=== PATIENT | female | born 1950 | race Caucasian/White ===

== ENCOUNTER 2016-07-19 12:51 | Emergency (ER) | payer MEDICARE, OTHER ==
[~2016-07-19 12:51] MED LIST: ACET-2605 PO; AMLO5TAB2 PO; Albuterol HFA 60 Puff 8 Gm Inhaler INHALATION SCH; BIOT10002 PO; CHOL5000 PO; FUR20 PO; GABA-502 PO; HYDR25TA4 PO; MAGN250T29 PO; METF500T7 PO; MULT1CAP33 PO; OMEP20CA11 PO; OXYM30SP18 NASAL; POTA20TA16 PO; SIMV80TA4 PO; TAMO20TA4 PO; VIT1TABL83 PO
[2016-07-19 12:52] VITALS: BP 158/97; PULSE 112; RESP 18; O2SAT 97
[2016-07-19] MEDS ORDERED: Ondansetron 2 mg/mL 2 mL Inj ONE (13:35)
[2016-07-19 13:36] LABS: BASOPHILS % (AUTO) 0.7 % (0-3); MONOCYTES % (AUTO) 21.7 % (4-12); Mean Corpuscular Hemoglobin 30.4 pg (27.0-35.0); Mean Corpuscular Volume 91.1 fL (81-100); NEUTROPHILS % (AUTO) 21.8 % (40-74); Platelet Count 166 bil/L (150-400)
--- NOTE | 2016-07-19 13:47 | DRSVH ---
PROCEDURE: X-RAY CHEST, TWO VIEWS ([id number]) INDICATIONS: cough,fever TECHNIQUE: 2 views of the chest were acquired. COMPARISON: [facility], CR, XR CHEST 1VW (PORTABLE), 12/13/2015, 15:51. FINDINGS: Surgical changes and devices: Pacemaking device and dual chamber leads stable over time, left breast region surgical clips consistent with prior breast carcinoma surgery.. Lungs and pleura: No pleural effusions or pneumothorax. Lungs are abnormal with mild by basilar ate lectasis but no definite pneumonia found. Mediastinum: Mediastinal contours are normal. Heart size is normal. Bones and chest wall: No suspicious bony abnormalities. Soft tissues appear unremarkable. IMPRESSION: Source of cough and fever is not found. Mild bibasilar atelectasis. Dictated by: Carmelo Poon M.D. on 07/19/2016 at 13:44 Approved by: Carmelo Poon M.D. on 07/19/2016 at 13:45
[2016-07-19 14:04] LABS: Magnesium 1.8 mg/dL (1.6-2.6); TROPONIN T < 0.010 ug/L (0.0-0.011)
--- NOTE | 2016-07-19 16:38 | ED.REPORT ---
HPI-General Illness Date of Service Jul 19, 2016 ED Provider: Luis Mendez MD A 66 year old female with a history of diabetes, hypertension, hyperlipidemia, and breast cancer in remission s/p pacemaker placement presents to the ED with fever (high of 103.5) onset four days ago. Associated symptoms include productive cough, diarrhea, and reduced appetite. The patient denies chest pain or other symptoms. She has had similar symptoms in the past associated with pneumonia. She denies any history of asthma or COPD though she does state that she has been prescribed albuterol in the past and has responded well to this. Nursing Notes Stated Complaint: CHEST COLD/FEVER Chief Complaint: General Complaint Nursing Notes Reviewed: Yes Allergies: Coded Allergies: Sulfa (Sulfonamide Antibiotics) (Verified Allergy, Intermediate, Rash, 07/19) Scheduled Acetaminophen/Diphenhydramine (Tylenol Pm Ex-Strength Caplet) 500 Mg-25 Mg Tablet 2 TAB PO HS Amlodipine (Amlodipine) 5 Mg Tablet 5 MG PO DAILY Azithromycin (Zithromax (Z-Jony)) 250 Mg Tablet 250 MG PO DIRECTED Take two tablets by mouth on day 1, then take one tablet daily on days 2 through 5. Biotin (Biotin) 10,000 Mcg Tab.rapdis 1,600 MCG PO BID Cholecalciferol (Vitamin D3) (Vitamin D3) 5,000 Unit Capsule 5,000 UNIT PO DAILY Gabapentin (Gabapentin) 300 Mg Capsule 300 MG PO MORNING Gabapentin (Gabapentin) 300 Mg Capsule 300 MG PO afternoon Gabapentin (Gabapentin) 300 Mg Capsule 600 MG PO HS Hydrochlorothiazide (Hydrochlorothiazide) 25 Mg Tablet 25 MG PO DAILY Magnesium Oxide (Magnesium) 250 Mg Tablet 250 MG PO DAILY Metformin ER (Metformin ER) 500 Mg Tablet 1,000 MG PO BID Multivitamin (Multivitamins) 1 Each Capsule 1 EACH PO DAILY Omeprazole (Omeprazole) 20 Mg Capsule.dr 20 MG PO HS Oxymetazoline HCl (Nasal [place] Sinus) 30 Ml [place] 2 SPRAYS NASAL Q12H Potassium Chloride (Potassium Chloride) 20 Meq Tab.er.prt 20 MEQ PO DAILY TAKE WITH FOOD Prednisone (PredniSONE) 20 Mg Tablet 40 MG PO DAILY Simvastatin (Simvastatin) 80 Mg Tablet 80 MG PO HS Tamoxifen Citrate (Tamoxifen Citrate) 20 Mg Tablet 20 MG PO DAILY Vit B Comp/C/FA/Iron/Vit E (Vitamin B Complex Tablet) 1 Each Tablet 1 EACH PO DAILY Scheduled PRN Benzonatate (Tessalon Perle) 100 Mg Capsule 100 MG PO TID PRN PRN For Cough Furosemide (Furosemide) 20 Mg Tab 20 MG PO DAILY PRN PRN swelling Ondansetron ODT (Zofran ODT) 4 Mg Tablet 4 MG PO Q4H PRN PRN For Nausea General Time Seen by MD: 15:03 Chief Complaint Fever (High of 103.5) Hx Obtained From: Patient Arrived By: Walk-in Sudden in Onset?: Yes Onset Occurred: 4 days ago Symptom Duration: Since onset Severity: Current: No pain currently Severity: Maximum: No pain Associated with: Reports: Cough, Denies: Chest pain Pertinent Negative: Relieved by nothing Context Related History: Reports Cancer, Reports Diabetes mellitus Recent Healthcare: No recent doctor visit Similar Sx Previous: Yes Past Medical History Past Medical History Notes: vaginal births x4 Past Medical History Hx of breast cancer in remission 07/19/16 Thyroid disease as a teen Sinus issues Hypertension Bunion Reports: Diabetes mellitus, Hyperlipidemia, Hypertension Past Surgical History Lumpectomy/axillary sentinel lymph node biopsy in May 2012, for 1.2 cm, Bunion Reports: Pacemaker insertion Smoking History Former Smoker Social History Alcohol Use: "Social" Ambulatory Status Independent Review of Systems + Productive cough, reduced appetite Full Review of Systems Constitutional: Reports: Fever (High of 103.5) Respiratory: Denies: Shortness of breath Cardiovascular: Denies: Chest pain GI: Reports: Diarrhea, Denies: Vomiting Complete sys rev & neg: except as marked. Physical Exam Vital Signs Vital Signs Date Time Temp Pulse Resp B/P Pulse Ox O2 Delivery O2 Flow Rate FiO2 07/19/16 17:57 97 18 130/69 97 Room Air 07/19/16 17:22 87 16 95 Room Air 07/19/16 12:52 36.5 112 18 158/97 97 Room Air Initial VS: Reviewed Skin: Warm, Dry Neurologic: Alert, Oriented Psychiatric: Mood/affect normal, Behavior normal General/Constitutional: Awake, Alert Head / Eyes: Atraumatic, Normocephalic ENT: Airway patent, Mucous membranes moist Respiratory / Chest: No respiratory distress Wheezing / Retractions: Positive: Wheezing moderate (Diffuse) Coarse lung sounds bilaterally Pacemaker present in left anterior chest well with a healed surgical site without redness, swelling, or warmth Cardiovascular: Heart rate NL, Regular rhythm, Heart sounds NL, No gallop, No murmurs, No rubs, Peripheral circulation NL (Good distal pulses) Abdomen: Soft, Non-tender, No distention Lower Extremity / Pelvis / MS: Inspection NL No lower extremity pitting edema or calf swelling Interpretation & Diagnostics Lab Results Interpretation Result Diagram: 07/19/16 1315 07/19/16 1315 Test 07/19/16 13:15 07/19/16 13:30 White Blood Count 2.9th/mm3 (3.8-10.1) Red Blood Count 4.51mil/mm3 (3.90-5.20) Hemoglobin 13.7g/dL (12.0-15.6) Hematocrit 41.1% (35.0-46.0) Mean Corpuscular Volume 91.1fL (81-100) Mean Corpuscular Hemoglobin 30.4pg (27.0-35.0) Mean Corpuscular Hemoglobin Concent 33.3% (32.0-37.0) Red Cell Distribution Width 14.8% (12.3-15.4) Platelet Count 166bil/L (150-400) Neutrophils (%) (Auto) 21.8% (40-74) Lymphocytes (%) (Auto) 54.5% (14-46) Monocytes (%) (Auto) 21.7% (4-12) Eosinophils (%) (Auto) 1.0% (0-5) Basophils (%) (Auto) 0.7% (0-3) Sodium Level 135mEq/L (134-144) Potassium Level 3.6mEq/L (3.5-5.2) Chloride Level 95mEq/L (97-108) Carbon Dioxide Level 17mmol/L (18-29) Blood Urea Nitrogen 22mg/dL (8-27) Creatinine 1.20mg/dL (0.57-1.00) Estimat Glomerular Filtration Rate 64mL/min (>59) Glucose Level 132mg/dL (60-99) Lactic Acid Level 1.3mmol/L (0.4-2.0) Calcium Level 10.5mg/dL (8.5-10.1) Magnesium Level 1.8mg/dL (1.6-2.6) Total Bilirubin 0.2mg/dL (0.0-1.2) Aspartate Amino Transf (AST/SGOT) 73U/L (0-50) Alanine Aminotransferase (ALT/SGPT) 64U/L (0-32) Alkaline Phosphatase 51U/L (25-165) Troponin T < 0.010ug/L (0.0-0.011) Total Protein 8.0g/dL (6.4-8.4) Albumin 4.3g/dL (3.4-5.0) Hold Palmer Top Tube Received (Received) ECG Interpretation ECG Interpretation: Atrial-sensed ventricular paced rhythm rate 91 No prior ECG available for comparison at this time Time: 13:55 Interpreted by: ED physician X-Ray Chest Interpretation Chest Xray Interpretation: IMPRESSION: Source of cough and fever is not found. Mild bibasilar atelectasis. Dictated by: Carmelo Poon M.D. on 07/19/2016 at 13:44 View: AP & lat Interpretation / Wet Read by: Interpret - Radiologist Re-Eval/Medical Decision Med Decision/Clinical Course A 66 year old female with a history of diabetes, hypertension, hyperlipidemia, and breast cancer in remission s/p pacemaker placement presents to the ED with fever (high of 103.5) onset four days ago. Associated symptoms include productive cough, diarrhea, and reduced appetite. The patient denies chest pain or other symptoms. She has had similar symptoms in the past associated with pneumonia. She denies any history of asthma or COPD though she does state that she has been prescribed albuterol in the past and has responded well to this. Upon arrival the patient was slightly tachycardic but otherwise afebrile with stable vital signs. Examination is above revealed coarse breath sounds and expiratory wheezing. Chest x-ray demonstrated some mild bibasilar atelectasis though no focal consolidation, pneumothorax or pulmonary edema. ECG 13:55 Atrial-sensed ventricular paced rhythm rate 91 No prior ECG available for comparison at this time Laboratory studies notable as below: White count 2.9 but CBC otherwise unremarkable Chemistries: BUN 22 Creatinine 1.2 Mildly elevated transaminases No significant electrolyte abnormalities Negative troponin. Chest x-ray: Source of cough and fever is not found. Mild bibasilar atelectasis. Prednisone and DuoNeb given in ED, thereafter patient reported significant symptomatic improvement. She was ambulated on pulse oximetry and maintained oxygen saturation in the 90s on room air. Overall presentation was consistent with bronchitis/exacerbation of reactive airway disease. Patient prescribed a 5 day course of prednisone and azithromycin. She was given an albuterol inhaler with spacer and advised to use as needed. No evidence at this time of acute coronary syndrome, pulmonary embolism, pneumonia or other immediately concerning process. I feel that the patient is appropriate for discharge. Prior to discharge follow-up and return precautions were reviewed in detail with the patient who verbalized understanding and agreement with the plan. The patient was discharged in stable condition. Time of Eval: 17:47 Patient Status: Condition improved Re-Evaluation/Progress Note: Discussed with patient x-ray and lab results, diagnosis, and plan for discharge. Follow-up and return to the ER instructions given. Patient agrees with plan for care and all questions were addressed. Counseled Regarding: Diagnosis, Lab results, Need for follow-up, When/why to return to ED Discharge & Departure Primary Impression: Bronchitis Additional Impressions: Cough Shortness of breath Wheezing Tachycardia Atelectasis Disposition: Home Discharge Condition All VS Reviewed: Yes Condition: Improved Patient Instructions: Acute Bronchitis (ED) Additional Instructions: Thank you for seeking care at the emergency room. It is difficult for us to make definitive diagnoses in the ED but we believe that you are experiencing bronchitis. Our primary goal today in the ED was to evaluate you for any life-threatening conditions. Your evaluation was reassuring. You will be discharged with a prescription for Prednisone, azithromycin, Tessalon, Zofran, and an inhaler. Finish the full course of Prednisone as prescribed if your symptoms worsen. Also finish the full course of azithromycin. Tessalon as needed for cough. Use the inhaler as directed for wheezing. Zofran as prescribed for nausea. You should follow-up with your primary doctor in the next week. You should return to the ED immediately if you develop worsening cough, fever, chills, chest pain, or shortness of breath. Thank you for letting us partake in your care today. Referrals: Natali Saenz MD (PCP) [facility] Attestation Portions of this note were transcribed by Mary Nielson. I, Dr. Mendez, personally performed the history, physical exam, and medical decision-making; I reviewed and confirmed the accuracy of the information in the transcribed note. Signed by: Dale Natarajan, 07/19/2016, 20:25 copies to: Natali Saenz MD, Beck O MD Jul 19, 2016 16:38 MARY NIELSON Jul 19, 2016 16:42
[2016-07-19] MEDS ORDERED: Albuterol-Ipratropium 3 mL Inhalation Solution NEB ONE (16:40)
[2016-07-19] MEDS ORDERED: predniSONE 20 mg Tablet PO ONE (16:40)
[2016-07-19] MEDS ORDERED: PRE20 PO (16:41)
[2016-07-19] MEDS ORDERED: AZIT250T4 PO (16:41)
[2016-07-19] MEDS ORDERED: BENZ-12 PO (16:42)
[2016-07-19] MEDS ORDERED: Albuterol HFA 60 Puff 8 Gm Inhaler INHALATION PRN (16:45)
[2016-07-19 17:22] VITALS: PULSE 87; RESP 16; O2SAT 95
[2016-07-19] MEDS ORDERED: Albuterol HFA 60 Puff 8 Gm Inhaler INHALATION SCH (17:30)
[2016-07-19] MEDS ORDERED: ONDA4TAB9 PO (17:49)
[2016-07-19] MEDS ORDERED: _Albuterol-HFA 60 Puff Inhaler INHALATION PRN (17:55)
[2016-07-19 17:57] VITALS: BP 130/69; PULSE 97; RESP 18; O2SAT 97
== END 2016-07-19 17:52 | disposition home or self-care (01) ==
LOC: SED 12:51
DX: J40 Bronchitis, not specified as acute or chronic (principal); J98.11 Atelectasis; R00.0 Tachycardia, unspecified; R06.2 Wheezing; I10 Essential (primary) hypertension; E11.9 Type 2 diabetes mellitus without complications; E78.5 Hyperlipidemia, unspecified; Z79.84 Long term (current) use of oral hypoglycemic drugs; Z95.0 Presence of cardiac pacemaker; Z87.891 Personal history of nicotine dependence
CPT/HCPCS: 36415; 71020; 80053; 83605; 83735; 84484; 85025; 93005; 94664; 94799; 96361; 96374; 99285; J2405; J7620